=== PATIENT | female | born 1985 | race Caucasian/White ===

== ENCOUNTER 2019-02-02 13:09 | Day surgery (SDC) | payer BC ==
[2019-02-02] MEDS ORDERED: Sodium Chloride 0.9% 1,000 ML IV ONE ×2 (14:12→17:45)
[2019-02-02] MEDS ORDERED: Sodium Chloride 0.9% 10 ML Syringe FLUSH PRN (14:12)
[2019-02-02] MEDS ORDERED: Acetaminophen 325 MG/10.15 ML ML PO ONE (14:27)
[2019-02-02] MEDS ORDERED: Ondansetron 4 MG/2 ML SDV IVPUSH ONE (14:28)
[2019-02-02] MEDS ORDERED: Acetaminophen 325 MG Tab PO ONE (14:41)
[2019-02-02] MEDS ORDERED: Acetaminophen/HYDROcodone 325-5 MG Tab PO ONE (17:21)
[2019-02-02] MEDS ORDERED: HYDROmorphone 0.5 MG/0.5 ML Syringe IVPUSH ONE (18:55)
--- NOTE | 2019-02-02 19:20 | PCM.HP ---
H&P History of Present Illness - General Date of Service: 02/02/19 Admit Problem/Dx: hemoperitoneum Source of Information: Patient History Limitations: Reports: No Limitations - History of Present Illness Initial Comments - Free Text/Narative: 33 year old at 6w5 days by her report of ultrasound on in Dr. Navas's office. Those reports are not available for review but she describes having an ultrasound showing normal IUP and nothing abnormal in the adnexa. was conceived via clomid. No history of pelvic inflammatory disease. She had pain this morning that brought her to her knees and cramping with some spotting so presented to the emergency department. ON exam she had RUQ pain and was set to be discharged but insisted on an ultrasound which demonstrated hemoperitoneum with blood to the level of the diaphragm. Difficult to see source of bleeding on ultrasound per the tech but does appear to be active bleeding on the right on cine loop. Viable IUP FHT 144. Onset of Symptoms: Reports: Gradual Symptom Onset Date: 01/31/19 Lower Abdominal Pain Score (Numeric/FACES): 6 - Related Data Allergies/Adverse Reactions: Allergies Allergy/AdvReac Type Severity Reaction Status Date / Time No Known Allergies Allergy Verified 02/02/19 13:28 Home Medications: Home Meds Vit Calc,Iron,Folic [ Vitamins] 1 tab PO DAILY 08/14/16 [ History] Folic Acid 1 mg PO DAILY 02/02/19 [History] Progesterone,Micronized [Progesterone] 100 mg PO DAILY 02/02/19 [History] Past Medical History HEENT History: Reports: Impaired Vision Other HEENT History: Pt wears contacts Gastrointestinal History: Reports: GERD Genitourinary History: Reports: None TRANSPORTATION ESCORT History: Reports: Musculoskeletal History: Reports: None Oncologic (Cancer) History: Reports: None - Past Surgical History Female Surgical History: Reports: Other (See Below) Musculoskeletal Surgical History: Reports: Other (See Below) Social & Family History - Tobacco Use Smoking Status *Q: Never Smoker - Caffeine Use Caffeine Use: Reports: None - Recreational Drug Use Recreational Drug Use: No H&P Review of Systems - Review of Systems: Review Of Systems: See Below General: Reports: No Symptoms HEENT: Reports: No Symptoms Pulmonary: Reports: No Symptoms Cardiovascular: Reports: No Symptoms Gastrointestinal: Reports: No Symptoms Genitourinary: Reports: No Symptoms Musculoskeletal: Reports: No Symptoms Skin: Reports: No Symptoms Psychiatric: Reports: No Symptoms Neurological: Reports: No Symptoms Hematologic/Lymphatic: Reports: No Symptoms Immunologic: Reports: No Symptoms Exam - Exam Exam: See Below - Vital Signs Vital Signs: Last Vital Signs Temp 36.4 C 02/02/19 16:28 Pulse 98 02/02/19 13:28 Resp 18 02/02/19 16:28 BP 105/63 02/02/19 16:28 Pulse Ox 100 02/02/19 16:28 Orthostatic Blood Pressure [ 110/69 Supine] Orthostatic Blood Pressure [ 91/63 Standing] Orthostatic Blood Pressure [ 108/75 Sitting] Weight: 66.224 kg - Exam General: Alert, Oriented, 4 HEENT: PERRLA, Hearing Intact, Mucosa Moist & [place], Nares Patent, Normal Nasal Septum, Posterior Pharynx Clear, Conjunctiva Clear, EOMI, EACs Clear, TMs Clear Neck: Supple, Trachea Midline, 2 Lungs: Clear to Auscultation, Normal Respiratory Effort Cardiovascular: Regular Rate, Regular Rhythm GI/Abdominal Exam: Normal Bowel Sounds, Soft, Non-Tender, No Organomegaly, No Distention, No Abnormal Bruit, No Mass, Guarding (Female) Exam: Other (tender) Rectal (Female) Exam: Normal Exam, Normal Rectal Tone Back Exam: Normal Inspection, Full Range of Motion, NT Extremities: Normal Inspection, Normal Range of Motion, Non-Tender, No Pedal Edema, Normal Capillary Refill Skin: Warm, Dry, Intact Neurological: Cranial Nerves Intact, Reflexes Equal Bilateral Neuro Extensive - Mental Status: Alert, Oriented x3, Normal Mood/Affect, Normal Cognition Neuro Extensive - Motor, Sensory, Reflexes: CN II-XII Intact, Normal Gait, Normal Reflexes Psychiatric: Alert, Normal Affect, Normal Mood - Patient Data Lab Results Last 24 hrs: Laboratory Results - last 24 hr 02/02/19 02/02/19 02/02/19 Range/Units 14:30 14:30 14:30 WBC 11.71 H (3.98-10.04) K/mm3 RBC 3.65 L (3.98-5.22) M/mm3 Hgb 11.0 L (11.2-15.7) gm/L Hct 32.0 L (34.1-44.9) % MCV 87.7 D (79.4-94.8) fl MCH 30.1 (25.6-32.2) pg MCHC 34.4 (32.2-35.5) g/dl RDW Std Deviation 37.5 (36.4-46.3) fL Plt Count 308 D (182-369) K/mm3 MPV 10.2 (9.4-12.3) fl Neut % (Auto) 83.7 H (34.0-71.1) % Lymph % (Auto) 9.0 L (19.3-51.7) % [place] % (Auto) 6.9 (4.7-12.5) % Eos % (Auto) 0.1 L (0.7-5.8) Baso % (Auto) 0.1 (0.1-1.2) % Neut # (Auto) 9.81 H (1.56-6.13) K/mm3 Lymph # (Auto) 1.05 L (1.18-3.74) K/mm3 [place] # (Auto) 0.81 H (0.24-0.36) K/mm3 Eos # (Auto) 0.01 L (0.04-0.36) K/mm3 Baso # (Auto) 0.01 (0.01-0.08) K/mm3 Manual Slide Review Abnormal smear PT (9.5-12.1) SECONDS INR APTT (24-31) SECONDS Sodium 136 (136-145) mEq/L Potassium 3.8 (3.5-5.1) mEq/L Chloride 101 (98-107) mEq/L Carbon Dioxide 23 (21-32) mEq/L Anion Gap 15.8 H (5-15) BUN 11 (7-18) mg/dL Creatinine 0.7 (0.55-1.02) mg/dL Est Cr Clr Drug Dosing 103.82 mL/min Estimated GFR (MDRD) > 60 (>60) mL/min BUN/Creatinine Ratio 15.7 (14-18) Glucose 120 H (74-106) mg/dL Calcium 9.0 (8.5-10.1) mg/dL Total Bilirubin 0.7 (0.2-1.0) mg/dL AST 13 L (15-37) U/L ALT 15 (14-59) U/L Alkaline Phosphatase 48 (46-116) U/L Total Protein 7.3 (6.4-8.2) g/dl Albumin 3.5 (3.4-5.0) g/dl Globulin 3.8 gm/dL Albumin/Globulin Ratio 0.9 L (1-2) Lipase 87 (73-393) U/L HCG, Quant 31549.0 mIU/mL Urine Color (Yellow) Urine Appearance (Clear) Urine pH (5.0-8.0) Ur Specific [place] (1.005-1.030) Urine Protein (Negative) Urine Glucose (UA) (Negative) Urine Ketones (Negative) Urine Occult Blood (Negative) Urine Nitrite (Negative) Urine Bilirubin (Negative) Urine Urobilinogen (0.2-1.0) Ur Leukocyte Esterase (Negative) Urine RBC (0-5) /hpf Urine WBC (0-5) /hpf Ur Squamous Epith Cells (0-5) /hpf Urine Bacteria (FEW) /hpf Urine Mucus (FEW) /hpf Blood Type Gel Antibody Screen Rhogam Indicated 02/02/19 02/02/19 02/02/19 Range/Units 14:30 14:30 17:30 WBC (3.98-10.04) K/mm3 RBC (3.98-5.22) M/mm3 Hgb (11.2-15.7) gm/L Hct (34.1-44.9) % MCV (79.4-94.8) fl MCH (25.6-32.2) pg MCHC (32.2-35.5) g/dl RDW Std Deviation (36.4-46.3) fL Plt Count (182-369) K/mm3 MPV (9.4-12.3) fl Neut % (Auto) (34.0-71.1) % Lymph % (Auto) (19.3-51.7) % [place] % (Auto) (4.7-12.5) % Eos % (Auto) (0.7-5.8) Baso % (Auto) (0.1-1.2) % Neut # (Auto) (1.56-6.13) K/mm3 Lymph # (Auto) (1.18-3.74) K/mm3 [place] # (Auto) (0.24-0.36) K/mm3 Eos # (Auto) (0.04-0.36) K/mm3 Baso # (Auto) (0.01-0.08) K/mm3 Manual Slide Review PT 9.8 (9.5-12.1) SECONDS INR < 0.93 APTT 25 (24-31) SECONDS Sodium (136-145) mEq/L Potassium (3.5-5.1) mEq/L Chloride (98-107) mEq/L Carbon Dioxide (21-32) mEq/L Anion Gap (5-15) BUN (7-18) mg/dL Creatinine (0.55-1.02) mg/dL Est Cr Clr Drug Dosing mL/min Estimated GFR (MDRD) (>60) mL/min BUN/Creatinine Ratio (14-18) Glucose (74-106) mg/dL Calcium (8.5-10.1) mg/dL Total Bilirubin (0.2-1.0) mg/dL AST (15-37) U/L ALT (14-59) U/L Alkaline Phosphatase (46-116) U/L Total Protein (6.4-8.2) g/dl Albumin (3.4-5.0) g/dl Globulin gm/dL Albumin/Globulin Ratio (1-2) Lipase (73-393) U/L HCG, Quant mIU/mL Urine Color Yellow (Yellow) Urine Appearance Clear (Clear) Urine pH 5.5 (5.0-8.0) Ur Specific [place] > or = 1.030 (1.005-1.030) Urine Protein Trace H (Negative) Urine Glucose (UA) Negative (Negative) Urine Ketones Trace H (Negative) Urine Occult Blood Trace-lysed H (Negative) Urine Nitrite Negative (Negative) Urine Bilirubin Negative (Negative) Urine Urobilinogen 0.2 (0.2-1.0) Ur Leukocyte Esterase Negative (Negative) Urine RBC 0-5 (0-5) /hpf Urine WBC 0-5 (0-5) /hpf Ur Squamous Epith Cells 5-10 H (0-5) /hpf Urine Bacteria Few (FEW) /hpf Urine Mucus Moderate H (FEW) /hpf Blood Type O NEGATIVE Gel Antibody Screen Positive Rhogam Indicated Yes Result Diagrams: 02/02/19 14:30 02/02/19 14:30 Problem List Initiated/Reviewed/Updated: Yes Orders Last 24hrs: Active Orders 24 hr Category Date Time Status Orthostatic Vital Signs [RC] ASDIRECTED Care 02/02/19 14:12 Active Pelvic Exam, Set Up [RC] ASDIRECTED Care 02/02/19 17:09 Active Peripheral IV Care [RC] . DIRECTED Care 02/02/19 14:12 Active OB Transvaginal [US] Stat Exams 02/02/19 17:21 Taken ANTIBODY IDENTIFICATION [BBK] Stat Lab 02/02/19 14:30 Results RH IMMUNE GLOBULIN [BBK] Stat Lab 02/02/19 14:30 Results RHOGAM, [RHIG WORKUP, ] [BBK] Stat Lab 02/02/19 14:30 Results Sodium Chloride 0.9% [Saline Flush] Med 02/02/19 14:12 Active 10 ml FLUSH ASDIRECTED PRN Peripheral IV Insertion Adult [OM.PC] Routine Oth 02/02/19 14:12 Ordered Medication Orders Sodium Chloride (Saline Flush) 10 ml FLUSH ASDIRECTED PRN PRN Reason: Keep Vein Open Last Admin: 02/02/19 14:32 Dose: 10 ml Assessment/Plan Comment:: 33 year old female with hemoperitoneum. Differential diagnosis includes ruptured ectopic (heterotopic), ruptured ovarian cyst. Patient with orthostatic hypotension and active bleeding. OR team has been called. Proceed with laparoscopic evacuation of hemoperitoneum and possible salpingectomy vs ovarian cystectomy vs other indicated procedures. Possible laparotomy.
[2019-02-02] MEDS ORDERED: Lactated Ringers 1,000 ML ONE (19:29)
--- NOTE | 2019-02-02 19:31 | PCM.PREANE ---
Preanesthetic Assessment - Procedure Proposed Procedure: diagnostic laparoscopy evacuation of hemoparitoneum - Anesthesia/Transfusion/Family Hx Anesthesia History: Prior Anesthesia Without Reaction Family History of Anesthesia Reaction: No Transfusion History: No Prior Transfusion(s) - Review of Systems General: No Symptoms Pulmonary: No Symptoms Cardiovascular: No Symptoms Gastrointestinal: Abdominal Pain (started monday am), Vomiting (this am) Neurological: No Symptoms - Physical Assessment NPO Status Date: 02/02/19 NPO Status Time: 11:00 (noodles ) O2 Sat by Pulse Oximetry: 100 Respiratory Rate: 18 Temperature: 97.5 F Vital Signs: Last Vital Signs Temp 97.5 F 02/02/19 16:28 Pulse 98 02/02/19 13:28 Resp 18 02/02/19 16:28 BP 105/63 02/02/19 16:28 Pulse Ox 100 02/02/19 16:28 Orthostatic Blood Pressure [ 110/69 Supine] Orthostatic Blood Pressure [ 91/63 Standing] Orthostatic Blood Pressure [ 108/75 Sitting] Height: 5 ft 5 in Weight: 66.224 kg ASA Class: 1E Mental Status: Alert & Oriented x3 Airway Class: Mallampati = 1 Dentition: Reports: Normal Dentition Thyro-Mental Finger Breadths: 3 Mouth Opening Finger Breadths: 3 ROM/Head Extension: Full Lungs: Clear to Auscultation, Normal Respiratory Effort Cardiovascular: Regular Rate, Regular Rhythm - Lab Values: Laboratory Last Values WBC 11.71 K/mm3 (3.98-10.04) H 02/02/19 14:30 RBC 3.65 M/mm3 (3.98-5.22) L 02/02/19 14:30 Hgb 11.0 gm/L (11.2-15.7) L 02/02/19 14:30 Hct 32.0 % (34.1-44.9) L 02/02/19 14:30 MCV 87.7 fl (79.4-94.8) D 02/02/19 14:30 MCH 30.1 pg (25.6-32.2) 02/02/19 14:30 MCHC 34.4 g/dl (32.2-35.5) 02/02/19 14:30 RDW Std Deviation 37.5 fL (36.4-46.3) 02/02/19 14:30 Plt Count 308 K/mm3 (182-369) D 02/02/19 14:30 MPV 10.2 fl (9.4-12.3) 02/02/19 14:30 Neut % (Auto) 83.7 % (34.0-71.1) H 02/02/19 14:30 Lymph % (Auto) 9.0 % (19.3-51.7) L 02/02/19 14:30 [place] % (Auto) 6.9 % (4.7-12.5) 02/02/19 14:30 Eos % (Auto) 0.1 (0.7-5.8) L 02/02/19 14:30 Baso % (Auto) 0.1 % (0.1-1.2) 02/02/19 14:30 Neut # (Auto) 9.81 K/mm3 (1.56-6.13) H 02/02/19 14:30 Lymph # (Auto) 1.05 K/mm3 (1.18-3.74) L 02/02/19 14:30 [place] # (Auto) 0.81 K/mm3 (0.24-0.36) H 02/02/19 14:30 Eos # (Auto) 0.01 K/mm3 (0.04-0.36) L 02/02/19 14:30 Baso # (Auto) 0.01 K/mm3 (0.01-0.08) 02/02/19 14:30 Manual Slide Review Abnormal smear 02/02/19 14:30 PT 9.8 SECONDS (9.5-12.1) 02/02/19 14:30 INR < 0.93 02/02/19 14:30 APTT 25 SECONDS (24-31) 02/02/19 14:30 Sodium 136 mEq/L (136-145) 02/02/19 14:30 Potassium 3.8 mEq/L (3.5-5.1) 02/02/19 14:30 Chloride 101 mEq/L (98-107) 02/02/19 14:30 Carbon Dioxide 23 mEq/L (21-32) 02/02/19 14:30 Anion Gap 15.8 (5-15) H 02/02/19 14:30 BUN 11 mg/dL (7-18) 02/02/19 14:30 Creatinine 0.7 mg/dL (0.55-1.02) 02/02/19 14:30 Est Cr Clr Drug Dosing 103.82 mL/min 02/02/19 14:30 Estimated GFR (MDRD) > 60 mL/min (>60) 02/02/19 14:30 BUN/Creatinine Ratio 15.7 (14-18) 02/02/19 14:30 Glucose 120 mg/dL (74-106) H 02/02/19 14:30 Calcium 9.0 mg/dL (8.5-10.1) 02/02/19 14:30 Total Bilirubin 0.7 mg/dL (0.2-1.0) 02/02/19 14:30 AST 13 U/L (15-37) L 02/02/19 14:30 ALT 15 U/L (14-59) 02/02/19 14:30 Alkaline Phosphatase 48 U/L (46-116) 02/02/19 14:30 Total Protein 7.3 g/dl (6.4-8.2) 02/02/19 14:30 Albumin 3.5 g/dl (3.4-5.0) 02/02/19 14:30 Globulin 3.8 gm/dL 02/02/19 14:30 Albumin/Globulin Ratio 0.9 (1-2) L 02/02/19 14:30 Lipase 87 U/L (73-393) 02/02/19 14:30 HCG, Quant 25562.0 mIU/mL 02/02/19 14:30 Urine Color Yellow (Yellow) 02/02/19 17:30 Urine Appearance Clear (Clear) 02/02/19 17:30 Urine pH 5.5 (5.0-8.0) 02/02/19 17:30 Ur Specific [place] > or = 1.030 (1.005-1.030) 02/02/19 17:30 Urine Protein Trace (Negative) H 02/02/19 17:30 Urine Glucose (UA) Negative (Negative) 02/02/19 17:30 Urine Ketones Trace (Negative) H 02/02/19 17:30 Urine Occult Blood Trace-lysed (Negative) H 02/02/19 17:30 Urine Nitrite Negative (Negative) 02/02/19 17:30 Urine Bilirubin Negative (Negative) 02/02/19 17:30 Urine Urobilinogen 0.2 (0.2-1.0) 02/02/19 17:30 Ur Leukocyte Esterase Negative (Negative) 02/02/19 17:30 Urine RBC 0-5 /hpf (0-5) 02/02/19 17:30 Urine WBC 0-5 /hpf (0-5) 02/02/19 17:30 Ur Squamous Epith Cells 5-10 /hpf (0-5) H 02/02/19 17:30 Urine Bacteria Few /hpf (FEW) 02/02/19 17:30 Urine Mucus Moderate /hpf (FEW) H 02/02/19 17:30 Blood Type O NEGATIVE 02/02/19 14:30 Gel Antibody Screen Positive 02/02/19 14:30 Rhogam Indicated Yes 02/02/19 14:30 - Allergies Allergies/Adverse Reactions: Allergies Allergy/AdvReac Type Severity Reaction Status Date / Time No Known Allergies Allergy Verified 02/02/19 13:28 - Acknowledgements Anesthesia Type Planned: General Anesthesia Pt an Appropriate Candidate for the Planned Anesthesia: Yes Alternatives and Risks of Anesthesia Discussed w Pt/Guardian: Yes Pt/Guardian Understands and Agrees with Anesthesia Plan: Yes PreAnesthesia Questionnaire HEENT History: Reports: Impaired Vision Other HEENT History: Pt wears contacts Cardiovascular History: Reports: None Respiratory History: Reports: None Gastrointestinal History: Reports: GERD (with preg) Genitourinary History: Reports: None INFORMATION SYSTEMS PROFESSOR History: Reports: : 3 (misscarried in october ) Para: 1 (6 weeks now) Musculoskeletal History: Reports: None Oncologic (Cancer) History: Reports: None - Past Surgical History Female Surgical History: Reports: Other (See Below) (labia surgery) Musculoskeletal Surgical History: Reports: Other (See Below) (knee) - SUBSTANCE USE Smoking Status *Q: Never Smoker Tobacco Use Within Last Twelve Months: No Second Hand Smoke Exposure: No Days Per Week of Alcohol Use: 0 (rare) Recreational Drug Use History: No - HOME MEDS Home Medications: Home Meds Vit Calc,Iron,Folic [ Vitamins] 1 tab PO DAILY 08/14/16 [ History] Folic Acid 1 mg PO DAILY 02/02/19 [History] Progesterone,Micronized [Progesterone] 100 mg PO DAILY 02/02/19 [History] - CURRENT (IN HOUSE) MEDS Current Meds: Current Medications Sodium Chloride (Saline Flush) 10 ml FLUSH ASDIRECTED PRN PRN Reason: Keep Vein Open Last Admin: 02/02/19 14:32 Dose: 10 ml Discontinued Medications Acetaminophen (Tylenol) 950 mg PO ONETIME ONE Stop: 02/02/19 14:28 Last Admin: 02/02/19 15:03 Dose: Not Given Acetaminophen (Tylenol) 975 mg PO NOW ONE Stop: 02/02/19 14:42 Last Admin: 02/02/19 15:01 Dose: 975 mg Hydrocodone Bitart/Acetaminophen ([place] 325-5 Mg) 1 tab PO ONETIME ONE Stop: 02/02/19 17:22 Last Admin: 02/02/19 18:48 Dose: Not Given Hydromorphone HCl (Dilaudid) 0.5 mg IVPUSH ONETIME ONE Stop: 02/02/19 18:56 Sodium Chloride (Normal Saline) 1,000 mls @ 999 mls/hr IV ONETIME ONE Stop: 02/02/19 15:12 Last Admin: 02/02/19 14:30 Dose: 999 mls/hr Sodium Chloride (Normal Saline) 1,000 mls @ 999 mls/hr IV ONETIME ONE Stop: 02/02/19 18:45 Last Admin: 02/02/19 18:36 Dose: 999 mls/hr Ondansetron HCl (Zofran) 4 mg IVPUSH ONETIME ONE Stop: 02/02/19 14:29 Last Admin: 02/02/19 15:03 Dose: 4 mg
[2019-02-02] MEDS ORDERED: Lactated Ringers 1,000 ML IV ONE (19:34)
[2019-02-02] MEDS ORDERED: Midazolam 1 MG/ML 2 ML SDV ONE (19:35)
[2019-02-02] MEDS ORDERED: Rocuronium 50 MG/5 ML Vial ONE (19:35)
[2019-02-02] MEDS ORDERED: Ondansetron 4 MG/2 ML SDV ONE (19:35)
[2019-02-02] MEDS ORDERED: fentaNYL 250 MCG/5 ML SDV ONE (19:35)
[2019-02-02] MEDS ORDERED: Propofol 200 MG/20 ML SDV ONE (19:35)
[2019-02-02] MEDS ORDERED: Lidocaine 1% 4 ML ONE (19:35)
[2019-02-02] MEDS ORDERED: Dexamethasone 4 MG/ML 5 ML MDV ONE (19:39)
[2019-02-02] MEDS ORDERED: Bupivacaine 0.5% 30 ML SDV ONE (19:39)
[2019-02-02] MEDS ORDERED: ceFAZolin 1 GM Vial ONE (19:54)
[2019-02-02] MEDS ORDERED: ePHEDrine/Normal Saline 25 MG/5 ML Syringe ONE (20:04)
[2019-02-02] MEDS ORDERED: Ondansetron 4 MG/2 ML SDV IVPUSH PRN (20:08)
[2019-02-02] MEDS ORDERED: HYDROmorphone 0.5 MG/0.5 ML Syringe IVPUSH PRN (20:08)
[2019-02-02] MEDS ORDERED: fentaNYL 100 MCG/2 ML SDV IVPUSH PRN (20:08)
[2019-02-02] MEDS ORDERED: Neostigmine Methylsulfate 1 MG/ML 5 ML Syringe ONE (20:33)
--- NOTE | 2019-02-02 21:03 | PCM.POSTAN ---
POST ANESTHESIA ASSESSMENT - MENTAL STATUS Mental Status: Alert, Oriented - VITAL SIGNS Pulse Rate: 90 SaO2: 98 Resp Rate: 17 Blood Pressure: 105/61 Temperature: 98.7 F - RESPIRATORY Respiratory Status: Respiratory Rate WNL, Airway Patent, O2 Saturation Stable - CARDIOVASCULAR CV Status: Pulse Rate WNL, Blood Pressure Stable - GASTROINTESTINAL GI Status: No Symptoms - PAIN Pain Score: 3 - POST OP HYDRATION Hydration Status: Adequate & Stable
--- NOTE | 2019-02-02 21:28 | PCM.OPNOTE ---
- General Post-Op/Procedure Note Date of Surgery/Procedure: 02/02/19 Operative Procedure(s): diagnostic laparoscopy with right salpingectomy Findings: right dilated blood filled fallopian tube, blood in abdomen Pre Op Diagnosis: hemoperitoneum Post-Op Diagnosis: Same Primary Surgeon: Aurora Jason Fluid Replacement, Intraop: 900 Output, Urine Amount: 175 EBL in mLs: 5 Complications: None Condition: Good Free Text/Narrative:: Intake & Output 02/02/19 02/02/19 02/02/19 06:59 14:59 22:59 Intake Total 2 Balance 2 Patient taken to the operating room. Prepped and draped in normal sterile fashion (vaginal prep not preformed). Attention was re-directed to the abdomen and a 5 mm skin incision was made in the patient's umbilical fold. A blunt tipped trocar was advanced under direct visualization using the laparoscope. The abdomen was insufflated and no evidence of injury upon entry was noted. General survey of the abdomen reveal normal uterus and ovaries. A 5 mm incision was then made on each the left and lower on the left side and a blunt tipped trocar was advanced under direct visualization. Suction box sealing machine operator used to evacuate clot from the abdomen. Abdomen inspected. Right fallopian tubed dilated and blood coming from midportion. Ligasure used to ligate and cut along mesosalpinx and remove fallopian tube. 11 mm trocar used to replace lower of the 5 mm trocars. Endocatch bag inserted, tube placed in bag and removed. Abdomen inspected. Area of fallopian tube dissection inspected and hemostatic. 11 mm trocar removed. Fascia closed with 0 vicryl on ur6 under direct visualization. Pneumoperitoneum taken down. 5 mm trocars removed under direct visualization. Skin closed with 4-0 vicryl. Patient awakened and taken to PACU in good condition. Ultrasound ordered for after PACU.
--- NOTE | 2019-02-02 21:28 | PCM48HPAN ---
Post Anesthesia Note - EVALUATION WITHIN 48HRS OF ANESTHETIC Vital Signs in Normal Range: Yes Patient Participated in Evaluation: Yes Respiratory Function Stable: Yes Airway Patent: Yes Cardiovascular Function Stable: Yes Hydration Status Stable: Yes Pain Control Satisfactory: Yes Nausea and Vomiting Control Satisfactory: Yes Mental Status Recovered: Yes (rests/ will go to floor soon) Pulse Rate: 90 Resp Rate: 14 Temperature: 98.7 F Blood Pressure: 105/61
[2019-02-02] MEDS ORDERED: Lactated Ringers 1,000 ML IV SCH (21:30)
--- NOTE | 2019-02-02 22:06 | EDM.PDOC ---
ED HPI GENERAL MEDICAL PROBLEM - General Chief Complaint: EARLY INTERVENTION SPECIALIST Problem Stated Complaint: 6 WKS PG - CRAMPING AND BLEEDING Time Seen by Provider: 02/02/19 14:00 Source of Information: Reports: Patient, Old Records History Limitations: Reports: No Limitations - History of Present Illness INITIAL COMMENTS - FREE TEXT/NARRATIVE: 33-year-old female presents for evaluation and treatment of cramping and bleeding. Patient reports she is approximately 6 weeks . She is a . She reports that she miscarried in October which was approximally 5 weeks along. Her EARLY INTERVENTION SPECIALIST is Dr. Navas. She has had 2 ultrasounds for this thus far. Last ultrasound was done on . Review of records, from [facility], show that she has an intrauterine . She states that a heart rate was seen. Patient reports that she developed some mild cramping on which prompted her visit to Dr. Navas. She states on Monday she had some mild cramping. She reports today she has had abdominal pain in the pelvis that is worse with movement. She is also complaining of some pain to her upper abdomen that radiates between her shoulder blades. She states that one hour prior to removal she noticed some vaginal bleeding on the toilet tissue. She has a pad on at this time but has not had bleeding soak through a pad. She states that she has not appreciated any clots of blood. She states that she has been nauseous and has not vomited this morning. She reports that she did have a syncopal episode this morning, she felt hot and cold. She did not have anything to eat. She states that she did not have any major trauma with the syncopal episode. She has been taking Tylenol for the pain and last dose was around 5 AM. She also tried some MiraLAX. review of the patient's records show that she is blood type O negative. Onset: Gradual Onset Date: 01/31/19 Lower Abdominal Pain Score (Numeric/FACES): 6 - Related Data Allergies Allergy/AdvReac Type Severity Reaction Status Date / Time No Known Allergies Allergy Verified 02/02/19 13:28 Home Meds: Home Meds Vit Calc,Iron,Folic [ Vitamins] 1 tab PO DAILY 08/14/16 [ History] Folic Acid 1 mg PO DAILY 02/02/19 [History] Progesterone,Micronized [Progesterone] 100 mg PO DAILY 02/02/19 [History] Past Medical History HEENT History: Reports: Impaired Vision Other HEENT History: Pt wears contacts Cardiovascular History: Reports: None Respiratory History: Reports: None Gastrointestinal History: Reports: GERD (with preg) Genitourinary History: Reports: None EARLY INTERVENTION SPECIALIST History: Reports: Musculoskeletal History: Reports: None Oncologic (Cancer) History: Reports: None - Past Surgical History Female Surgical History: Reports: Other (See Below) (labia surgery) Musculoskeletal Surgical History: Reports: Other (See Below) (knee) Social & Family History - Tobacco Use Smoking Status *Q: Never Smoker Second Hand Smoke Exposure: No - Caffeine Use Caffeine Use: Reports: None - Alcohol Use Days Per Week of Alcohol Use: 0 (rare) - Recreational Drug Use Recreational Drug Use: No ED ROS GENERAL - Review of Systems Review Of Systems: See Below GI/Abdominal: Reports: Abdominal Pain, Nausea. Denies: Vomiting : Reports: No Symptoms, Other (reports vaginal bleeding) Musculoskeletal: Reports: Back Pain Neurological: Reports: Syncope ED EXAM - Physical Exam Exam: See Below Exam Limited By: No Limitations General Appearance: Alert, WD/WN, Mild Distress Throat/Mouth: Normal Inspection, Normal Voice, No Airway Compromise Respiratory/Chest: No Respiratory Distress, Lungs Clear, Normal Breath Sounds Cardiovascular: Normal Peripheral Pulses, Regular Rate, Rhythm, No Murmur GI/Abdominal Exam: Normal Bowel Sounds, Soft, Tender (Generalized throughout her abdomen, positive Montgomery sign.) (Female) Exam: Normal Speculum Exam. No: Products of Conception, Tissue Present in Cervix/Vagina, Vaginal Bleeding (Very small amount of brown blood in the vagina with normal vaginal discharge. Cervix is closed.) Neurological: Alert, Oriented, Normal Cognition Psychiatric: Normal Affect, Normal Mood Skin Exam: Warm, Dry Course - Vital Signs Last Recorded V/S: Last Vital Signs Temp 98.1 F 02/02/19 21:50 Pulse 90 02/02/19 21:28 Resp 20 02/02/19 21:50 BP 104/62 02/02/19 21:50 Pulse Ox 98 02/02/19 21:50 Orthostatic Blood Pressure [ 110/69 Supine] Orthostatic Blood Pressure [ 91/63 Standing] Orthostatic Blood Pressure [ 108/75 Sitting] - Orders/Labs/Meds Orders: Active Orders 24 hr Category Date Time Status Communication Order [RC] ROUTINE Care 02/02/19 20:08 Active Cooling Warming Measures [RC] ASDIRECTED Care 02/02/19 20:08 Active Oxygen Therapy [RC] ASDIRECTED Care 02/02/19 20:08 Active Vital Signs [RC] PER UNIT ROUTINE Care 02/02/19 22:14 Active Vital Signs [RC] Q15M Care 02/02/19 20:08 Active Regular Diet [DIET] Diet 02/02/19 Dinner Active OB Transvaginal [US] Routine Exams 02/02/19 22:14 Ordered OB Transvaginal [US] Routine Exams 02/02/19 22:15 Ordered OB Transvaginal [US] Routine Exams 02/02/19 22:16 Ordered OB Transvaginal [US] Stat Exams 02/02/19 17:21 Taken ANTIBODY IDENTIFICATION [BBK] Stat Lab 02/02/19 14:30 Results CBC WITH AUTO DIFF [HEME] AM Lab 02/03/19 05:11 Ordered RH IMMUNE GLOBULIN [BBK] Stat Lab 02/02/19 14:30 Results RHOGAM, [RHIG WORKUP, ] [BBK] Stat Lab 02/02/19 14:30 Results Acetaminophen [Tylenol] Med 02/02/19 22:14 Active 650 mg PO Q4H PRN Acetaminophen/oxyCODONE [Percocet 325-5 MG] Med 02/02/19 22:14 Active 2 tab PO Q4H PRN Resuscitation Status Routine Resus Stat 02/02/19 22:05 Ordered Medication Orders Acetaminophen (Tylenol) 650 mg PO Q4H PRN PRN Reason: Pain (mild 1-3) Oxycodone/Acetaminophen (Percocet 325-5 Mg) 2 tab PO Q4H PRN PRN Reason: Pain (moderate 4-6) Labs: Laboratory Tests 02/02/19 02/02/19 02/02/19 Range/Units 14:30 14:30 14:30 WBC 11.71 H (3.98-10.04) K/mm3 RBC 3.65 L (3.98-5.22) M/mm3 Hgb 11.0 L (11.2-15.7) gm/L Hct 32.0 L (34.1-44.9) % MCV 87.7 D (79.4-94.8) fl MCH 30.1 (25.6-32.2) pg MCHC 34.4 (32.2-35.5) g/dl RDW Std Deviation 37.5 (36.4-46.3) fL Plt Count 308 D (182-369) K/mm3 MPV 10.2 (9.4-12.3) fl Neut % (Auto) 83.7 H (34.0-71.1) % Lymph % (Auto) 9.0 L (19.3-51.7) % [place] % (Auto) 6.9 (4.7-12.5) % Eos % (Auto) 0.1 L (0.7-5.8) Baso % (Auto) 0.1 (0.1-1.2) % Neut # (Auto) 9.81 H (1.56-6.13) K/mm3 Lymph # (Auto) 1.05 L (1.18-3.74) K/mm3 [place] # (Auto) 0.81 H (0.24-0.36) K/mm3 Eos # (Auto) 0.01 L (0.04-0.36) K/mm3 Baso # (Auto) 0.01 (0.01-0.08) K/mm3 Manual Slide Review Abnormal smear PT (9.5-12.1) SECONDS INR APTT (24-31) SECONDS Sodium 136 (136-145) mEq/L Potassium 3.8 (3.5-5.1) mEq/L Chloride 101 (98-107) mEq/L Carbon Dioxide 23 (21-32) mEq/L Anion Gap 15.8 H (5-15) BUN 11 (7-18) mg/dL Creatinine 0.7 (0.55-1.02) mg/dL Est Cr Clr Drug Dosing 103.82 mL/min Estimated GFR (MDRD) > 60 (>60) mL/min BUN/Creatinine Ratio 15.7 (14-18) Glucose 120 H (74-106) mg/dL Calcium 9.0 (8.5-10.1) mg/dL Total Bilirubin 0.7 (0.2-1.0) mg/dL AST 13 L (15-37) U/L ALT 15 (14-59) U/L Alkaline Phosphatase 48 (46-116) U/L Total Protein 7.3 (6.4-8.2) g/dl Albumin 3.5 (3.4-5.0) g/dl Globulin 3.8 gm/dL Albumin/Globulin Ratio 0.9 L (1-2) Lipase 87 (73-393) U/L HCG, Quant 30874.0 mIU/mL Urine Color (Yellow) Urine Appearance (Clear) Urine pH (5.0-8.0) Ur Specific [place] (1.005-1.030) Urine Protein (Negative) Urine Glucose (UA) (Negative) Urine Ketones (Negative) Urine Occult Blood (Negative) Urine Nitrite (Negative) Urine Bilirubin (Negative) Urine Urobilinogen (0.2-1.0) Ur Leukocyte Esterase (Negative) Urine RBC (0-5) /hpf Urine WBC (0-5) /hpf Ur Squamous Epith Cells (0-5) /hpf Urine Bacteria (FEW) /hpf Urine Mucus (FEW) /hpf Blood Type Gel Antibody Screen Rhogam Indicated 02/02/19 02/02/19 02/02/19 Range/Units 14:30 14:30 17:30 WBC (3.98-10.04) K/mm3 RBC (3.98-5.22) M/mm3 Hgb (11.2-15.7) gm/L Hct (34.1-44.9) % MCV (79.4-94.8) fl MCH (25.6-32.2) pg MCHC (32.2-35.5) g/dl RDW Std Deviation (36.4-46.3) fL Plt Count (182-369) K/mm3 MPV (9.4-12.3) fl Neut % (Auto) (34.0-71.1) % Lymph % (Auto) (19.3-51.7) % [place] % (Auto) (4.7-12.5) % Eos % (Auto) (0.7-5.8) Baso % (Auto) (0.1-1.2) % Neut # (Auto) (1.56-6.13) K/mm3 Lymph # (Auto) (1.18-3.74) K/mm3 [place] # (Auto) (0.24-0.36) K/mm3 Eos # (Auto) (0.04-0.36) K/mm3 Baso # (Auto) (0.01-0.08) K/mm3 Manual Slide Review PT 9.8 (9.5-12.1) SECONDS INR < 0.93 APTT 25 (24-31) SECONDS Sodium (136-145) mEq/L Potassium (3.5-5.1) mEq/L Chloride (98-107) mEq/L Carbon Dioxide (21-32) mEq/L Anion Gap (5-15) BUN (7-18) mg/dL Creatinine (0.55-1.02) mg/dL Est Cr Clr Drug Dosing mL/min Estimated GFR (MDRD) (>60) mL/min BUN/Creatinine Ratio (14-18) Glucose (74-106) mg/dL Calcium (8.5-10.1) mg/dL Total Bilirubin (0.2-1.0) mg/dL AST (15-37) U/L ALT (14-59) U/L Alkaline Phosphatase (46-116) U/L Total Protein (6.4-8.2) g/dl Albumin (3.4-5.0) g/dl Globulin gm/dL Albumin/Globulin Ratio (1-2) Lipase (73-393) U/L HCG, Quant mIU/mL Urine Color Yellow (Yellow) Urine Appearance Clear (Clear) Urine pH 5.5 (5.0-8.0) Ur Specific [place] > or = 1.030 (1.005-1.030) Urine Protein Trace H (Negative) Urine Glucose (UA) Negative (Negative) Urine Ketones Trace H (Negative) Urine Occult Blood Trace-lysed H (Negative) Urine Nitrite Negative (Negative) Urine Bilirubin Negative (Negative) Urine Urobilinogen 0.2 (0.2-1.0) Ur Leukocyte Esterase Negative (Negative) Urine RBC 0-5 (0-5) /hpf Urine WBC 0-5 (0-5) /hpf Ur Squamous Epith Cells 5-10 H (0-5) /hpf Urine Bacteria Few (FEW) /hpf Urine Mucus Moderate H (FEW) /hpf Blood Type O NEGATIVE Gel Antibody Screen Positive Rhogam Indicated Yes Meds: Medications Generic Name Dose Route Start Last Admin Trade Name Freq PRN Reason Stop Dose Admin Acetaminophen 650 mg 02/02/19 22:14 Tylenol PO Q4H PRN Pain (mild 1-3) Oxycodone/Acetaminophen 2 tab 02/02/19 22:14 Percocet 325-5 Mg PO Q4H PRN Pain (moderate 4-6) Discontinued Medications Generic Name Dose Route Start Last Admin Trade Name Crq PRN Reason Stop Dose Admin Acetaminophen 950 mg 02/02/19 14:27 02/02/19 15:03 Tylenol PO 02/02/19 14:28 Not Given ONETIME ONE Acetaminophen 975 mg 02/02/19 14:41 02/02/19 15:01 Tylenol PO 02/02/19 14:42 975 mg NOW ONE Administration Hydrocodone Bitart/Acetaminophen 1 tab 02/02/19 17:21 02/02/19 18:48 [place] 325-5 Mg PO 02/02/19 17:22 Not Given ONETIME ONE Bupivacaine HCl Confirm 02/02/19 19:39 02/02/19 20:15 Marcaine 0.5% Administered 02/02/19 19:40 5 ml Dose Administration 30 ml .ROUTE .STK-MED ONE Cefazolin Sodium Confirm 02/02/19 19:54 Ancef Administered 02/02/19 19:55 Dose 2 gm .ROUTE .STK-MED ONE Dexamethasone Confirm 02/02/19 19:39 Dexamethasone Administered 02/02/19 19:40 Dose 20 mg .ROUTE .STK-MED ONE Ephedrine Sulfate Confirm 02/02/19 20:04 Ephedrine In Ns Administered 02/02/19 20:05 Dose 25 mg .ROUTE .STK-MED ONE Fentanyl Confirm 02/02/19 19:35 Sublimaze Administered 02/02/19 19:36 Dose 250 mcg .ROUTE .STK-MED ONE Fentanyl 50 mcg 02/02/19 20:08 02/02/19 21:31 Sublimaze IVPUSH 50 mcg Q5M PRN Administration Pain Glycopyrrolate Confirm 02/02/19 20:33 Administered 02/02/19 20:34 Dose 1 mg .ROUTE .STK-MED ONE Hydromorphone HCl 0.5 mg 02/02/19 18:55 Dilaudid IVPUSH 02/02/19 18:56 ONETIME ONE Hydromorphone HCl 0.5 mg 02/02/19 20:08 Dilaudid IVPUSH Q10M PRN Pain (severe 7-10) Sodium Chloride 1,000 mls @ 999 mls/hr 02/02/19 14:12 02/02/19 14:30 Normal Saline IV 02/02/19 15:12 999 mls/hr ONETIME ONE Administration Sodium Chloride 1,000 mls @ 999 mls/hr 02/02/19 17:45 02/02/19 18:36 Normal Saline IV 02/02/19 18:45 999 mls/hr ONETIME ONE Administration Lactated Ringer's Confirm 02/02/19 19:29 02/02/19 19:57 Ringers, Lactated Administered 02/02/19 19:30 Not Given Dose 1,000 mls @ as directed .ROUTE .STK-MED ONE Lactated Ringer's 1,000 mls @ 999 mls/hr 02/02/19 19:34 02/02/19 19:40 Ringers, Lactated IV 02/02/19 20:34 999 mls/hr .BOLUS ONE Administration Lidocaine HCl Confirm 02/02/19 19:35 Xylocaine-Mpf 1% Administered 02/02/19 19:36 Dose 4 mls @ as directed .ROUTE .STK-MED ONE Lactated Ringer's 1,000 mls @ 125 mls/hr 02/02/19 21:30 02/02/19 21:32 Ringers, Lactated IV 125 mls/hr ASDIRECTED MAURICIO Administration Midazolam HCl Confirm 02/02/19 19:35 Versed 1 Mg/Ml Administered 02/02/19 19:36 Dose 2 mg .ROUTE .STK-MED ONE Neostigmine Methylsulfate Confirm 02/02/19 20:33 Neostigmine Administered 02/02/19 20:34 Dose 5 mg .ROUTE .STK-MED ONE Ondansetron HCl 4 mg 02/02/19 14:28 02/02/19 15:03 Zofran IVPUSH 02/02/19 14:29 4 mg ONETIME ONE Administration Ondansetron HCl Confirm 02/02/19 19:35 Zofran Administered 02/02/19 19:36 Dose 4 mg .ROUTE .STK-MED ONE Ondansetron HCl 4 mg 02/02/19 20:08 Zofran IVPUSH ONETIME PRN Nausea/Vomiting Propofol Confirm 02/02/19 19:35 Diprivan 20 Ml Administered 02/02/19 19:36 Dose 200 mg .ROUTE .STK-MED ONE Rocuronium [place] Confirm 02/02/19 19:35 Zemuron Administered 02/02/19 19:36 Dose 50 mg .ROUTE .STK-MED ONE Sodium Chloride 10 ml 02/02/19 14:12 02/02/19 14:32 Saline Flush FLUSH 10 ml ASDIRECTED PRN Administration Keep Vein Open - Re-Assessments/Exams Free Text/Narrative Re-Assessment/Exam: 02/02/19 18:08 Patient continued to complain of pain, no improvement with Tylenol. Did not want anything stronger for the pain. concerned when nurse informed me that she was orthostatic even after receiving a liter of fluids. Ultrasound ordered of her right upper quadrant to rule out gallbladder pathology as well as a transvaginal ultrasound. patient care technician came and informed. She has a large amount of blood in her pelvis. Unsure where the bleeding is coming from, ruptured ovarian cyst versus ruptured ectopic . She still has an intrauterine with heart tones at this time. Case discussed with Dr. Jason, asked I consult with Dr. Reese. Dr. reese Presented to the ER but Did Not Feel She Had Anything to offer the patient. [place] this is Ectopic or Ruptured Ovarian Cyst. Dr. Jason has come to the ER. She will take the patient to the OR. Departure - Departure Time of Disposition: 18:00 Disposition: Refer to Observation Condition: Serious Clinical Impression: Need for rhogam due to Rh negative mother, Subchorionic bleed, Hemoperitoneum - Discharge Information *PRESCRIPTION DRUG MONITORING PROGRAM REVIEWED*: No *COPY OF PRESCRIPTION DRUG MONITORING REPORT IN PATIENT JUANPABLO: No - My Orders Last 24 Hours: My Active Orders 02/02/19 14:30 ANTIBODY IDENTIFICATION [BBK] Stat RH IMMUNE GLOBULIN [BBK] Stat RHOGAM, [RHIG WORKUP, ] [BBK] Stat 02/02/19 17:21 OB Transvaginal [US] Stat - Assessment/Plan Last 24 Hours: My Active Orders 02/02/19 14:30 ANTIBODY IDENTIFICATION [BBK] Stat RH IMMUNE GLOBULIN [BBK] Stat RHOGAM, [RHIG WORKUP, ] [BBK] Stat 02/02/19 17:21 OB Transvaginal [US] Stat
[2019-02-02] MEDS ORDERED: Acetaminophen 325 MG Tab PO PRN (22:14)
[2019-02-02] MEDS: Acetaminophen/oxyCODONE 325-5 MG Tab PO PRN (22:33)
[2019-02-03] MEDS: Acetaminophen/oxyCODONE 325-5 MG Tab PO PRN (03:18)
[2019-02-03 08:02] VITALS: BP 111/61
--- NOTE | 2019-02-03 19:34 | US ---
Limited obstetrical ultrasound: Multiple real-time images were obtained transvaginally to evaluate viable intrauterine . Single intrauterine gestational sac is seen. Subchorionic hemorrhage is noted. Small pole is seen continuing to have heart activity at a rate of 140 BPM. Measurements: [place]-rump length: 0.71 cm - 6 weeks 4 days Heart rate: 140 bpm Impression: 1. Single intrauterine gestation. Dates as noted above. 2. Continued heart activity is seen within pole. Diagnostic code #2 I agree with preliminary report from [facility], finalized on 02/03/19, 1:12 AM Central Time
--- NOTE | 2019-02-03 19:35 | US ---
First trimester obstetrical ultrasound: Multiple real-time images were obtained transvaginally. Dates: LMP: LMP given as 12/09/18, DEJAN 09/15/19, gestational age 7 weeks 6 days Current ultrasound: DEJAN 09/27/19, gestational age 6 weeks 1 day Single intrauterine gestation is seen. Gestational sac is displaced by a subchorionic hemorrhage measuring approximately 5.4 cm in size. There is complex material within the right adnexa being seen believed to represent blood with clot around the right ovary. There may be some active bleeding into the right adnexa. Left ovary is unremarkable. There is free fluid being seen within portions of the upper abdomen most likely representing blood. Measurements: [place]-rump length: 0.49 cm - 6 weeks 1 day Heart rate: 144 bpm Impression: 1. Complex material within the right adnexa believed to represent blood with clot with probable active bleeding into this area. This surrounds the right ovary. Small amount of blood seen within the upper abdomen. Etiology for this bleeding is not seen and could represent very rare ruptured ectopic with intrauterine being seen. Finding could also represent bleeding from ruptured hemorrhagic cyst within the right ovary. 2. Intrauterine is seen with dates as noted above. Gestational sac is displaced by subchorionic hemorrhage. Diagnostic code #5 I agree with preliminary report from [facility], finalized on 02/02/19, 9:03 PM Central Time
== END 2019-02-03 09:55 | disposition home or self-care (01) ==
LOC: JD.ED 13:09 → JD.SDS 19:25 → JD.OB 19:25 → JD.SDS 02-03 09:55
PROVIDERS: ATTEND Obstetrics & Gynecology
DX: K66.1 Hemoperitoneum (principal); N83.291 Other ovarian cyst, right side; I95.1 Orthostatic hypotension; Z87.19 Personal history of other diseases of the digestive system
CPT/HCPCS: 36415; 58661; 76817; 80053; 81001; 83690; 84702; 85025; 85610; 85730; 96361; 96374; 99285; A9270; J0690; J1100; J2001; J2405; J2704; J2710; J2790; J3010; J3490; J7040; J7050; J7120; 00840; 36430; 99284; J2250

== ENCOUNTER 2019-09-18 06:23 | Inpatient (IN) | payer BC ==
--- NOTE | 2019-09-18 21:02 | PCM.LDHP ---
L&D History of Present Illness - General Date of Service: 09/18/19 Admit Problem/Dx: Admission Diagnosis/Problem Admission Diagnosis/Problem 09/18/19 20:49 Evelyn is a 33-year-old 4 para 1021 white female with an DEJAN of 2019 and a gestational age of 39-3/7 weeks gestational age upon admission for elective induction of labor. Source of Information: Patient History Limitations: Reports: No Limitations - History of Present Illness Introduction:: Evelyn is a 33-year-old 4 para 1021 white female with an DEJAN of 2019 and a gestational age of 39-3/7 weeks gestational age upon admission for elective induction of labor. The procedure of elective induction of labor, its risks, benefits and alternatives including allowing natural labor onset are discussed in detail with patient. She appears to understand and wishes to proceed. EXPERIMENTAL MECHANIC history: Patient is a 4 para 10-1 (1 ectopic and fallopian tube and one spontaneous ) is dated with an early ultrasound done at 7-1/7 weeks gestational age on 02/04/2019. Is supported by 2 other ultrasounds done on 02/20/2019 and 05/17/2019. She was obstetric history with this is complicated by a right tubal which was excised with a right partial salpingectomy. Her past obstetric history includes menarche at age 14. Cycles every 30-35 days and fairly regular. She is not using any control at the time of conception. Her last menstrual period was approximately. Patient's previous pregnancies included the followin. Female born 08/15/2015 at 39-3/7 weeks gestational age after 36 hours of labor. Baby weighed 7 lbs. 1 oz. Baby's name is Ar 2. Miscarriage passed spontaneously on 10/25/2018 at 5 weeks gestational age 3. Ectopic 02/02/2019 right fallopian tubetreated with partial right salpingectomy done via laparoscopy course. First visit was on 02/21/2019. She was seen on a regular basis and was a centering patient. Her weight gain was from 149 pounds up to 184 pounds 435 pound weight gain. Fundal height is appropriate. Patient's was complicated by the right which was managed with a right partial salpingectomy done laparoscopically. Group B strep screen is negative. Patient desires epidural in labor. Patient has history of anxiety. She plans to breast-feed. She is a centering patient. She declined genetic testing. Has a family history of factor V Leiden mutation but was tested and is negative. Patient had her flu shot on 06/04/2019. Her T DP was given on 07/02/2019. She had her hepatitis B immunization in December 1999. Laboratory testing in shows blood to be O- with a positive antibody screen secondary to RhoGAM having been administered early in due to the ectopic . Her initial hemoglobin was 11.9 g/dL at first visit. Platelets are 276,000. Rubella titer shows immunity. RPR is nonreactive. Urine culture was negative. Hepatitis B surface antigen and HIV assays were both negative. Gonorrhea tests were both negative. Her hemoglobin hemoglobin was 11.2 at second trimester and platelets are 205,000. Her 1 hour GTT was 108normal. Repeat RPR on 06/18/2019 was nonreactive. Her group B strep screen was negative. Allergies: None Medications: 1. Ferrous sulfate 3 and 25 mg by mouth daily 2. vitamins by mouth daily Past medical history: 1. Right tubal 2. Spontaneous at 5 weeks gestation 10/25/2018passed spontaneously 3. Normal spontaneous vaginal delivery Past surgical history: Labioplasty 2013 2. Knee surgery 2001 3. Laparoscopic right salpingectomy 2018. Family history: Maternal uncles have factor V Leiden mutation. Mother and father are alive and well. One brother is alive and well. Maternal grandmother secondary to cause unknown. Maternal grandfather secondary to retractor S accident versus an CO. Paternal grandmother secondary to unknown causes. Paternal grandfather secondary to L [place] disease. No anesthesia, , bleeding or blood clotting problems otherwise noted in the family. Social history: Patient is an property accountant. She is a college graduate. She lives in [place]. Significant other's [facility]. She does not use any significant loss of alcohol, drugs or tobacco. Review of systems: In general patient has no complaints. Skin: Negative Lungs: No infectious symptoms or shortness of breath Cardiovascular: No chest pain or exercise intolerance Breasts: Changes associated with GI: Negative : Body habitus changes consistent with term Musculoskeletal: Negative Neurological: Negative In general the patient is well-developed, well-nourished, pleasant female of stated age in no acute distress. On last evaluation in 09/16/2019 her blood pressures 128/70. Weight was 184 pounds with pre- weight 149 pounds. Height is 5 feet 5 inches. Prepregnancy body mass index is 23.3. Skin is warm dry without lesions. HEENT, neck and back within normal limits. Lungs are clear with good breath sounds in all lung gardiner. Cardiovascular exam shows regular and rhythm without murmurs. Abdomen is gravid with fundal height on last evaluation at 39 cm. Baby in vertex presentation.. Genital exam per digital exam on last evaluation clinic shows cervix to be 1-2 cm, 90% effaced, soft, -3, mid position. Extremities and neurological exam are grossly within normal limits. - Related Data Allergies/Adverse Reactions: Allergies Allergy/AdvReac Type Severity Reaction Status Date / Time No Known Allergies Allergy Verified 02/02/19 13:28 Home Medications: Home Meds Vit Calc,Iron,Folic [ Vitamins] 1 tab PO DAILY 08/14/16 [ History] Folic Acid 1 mg PO DAILY 02/02/19 [History] Progesterone, Micronized [Progesterone] 100 mg PO DAILY 02/02/19 [History] Past Medical History HEENT History: Reports: Impaired Vision Other HEENT History: Pt wears contacts Cardiovascular History: Reports: None Respiratory History: Reports: None Gastrointestinal History: Reports: GERD (with preg) Genitourinary History: Reports: None EXPERIMENTAL MECHANIC History: Reports: Musculoskeletal History: Reports: None Oncologic (Cancer) History: Reports: None - Past Surgical History Female Surgical History: Reports: Other (See Below) (labia surgery) Musculoskeletal Surgical History: Reports: Other (See Below) (knee) Social & Family History - Caffeine Use Caffeine Use: Reports: None H&P Review of Systems - Review of Systems: Review Of Systems: See Below L&D Exam - Exam Exam: See Below Problem List Initiated/Reviewed/Updated: Yes Assessment/Plan Comment:: 1. 33-year-old 4 para 1021 white female an DEJAN of 09/23/2019 presently at 39-3/7 week intrauterine upon admission on 09/19/2023 elective induction of labor 2. Group B strep negative 3. Patient desires epidural in labor and delivery 4. Patient plans to breast-feed 5. Risk factors for the include history of right tubal during his with resultant laparoscopic right partial salpingectomy, history of miscarriage 1 6. Patient has received her diphtheria pertussis tetanus immunization and her influenza immunization. Plan: 1. Pitocin induction of labor with artificial rupture membranes augmentation scheduled for a.m. of 09/19/2019 2. Epidural when necessary per patient desire 3. CBC and RPR per protocol upon admission 4. Support breast-feeding incision 5. Anticipate routine course and plan for routine care.
[2019-09-19] MEDS ORDERED: Sodium Chloride 0.9% 10 ML Syringe FLUSH PRN (07:19)
[2019-09-19] MEDS ORDERED: Nalbuphine 10 MG/ML Syringe IVPUSH PRN (07:19)
[2019-09-19] MEDS ORDERED: Lidocaine 1% 50 ML MDV INJECT PRN (07:30)
[2019-09-19] MEDS ORDERED: Oxytocin/Lactated Ringers 10 UNIT/1,000 ML BAG IV SCH ×2 (07:30)
[2019-09-19] MEDS: Lactated Ringers 1,000 ML IV SCH ×2 (08:30→12:29)
[2019-09-19] MEDS ORDERED: Lidocaine 1.5% with EPINEPHrine 1:200,000 5 ML Amp ONE (10:00)
[2019-09-19] MEDS ORDERED: fentaNYL 100 MCG/2 ML SDV EPIDUR PRN (11:41)
[2019-09-19] MEDS ORDERED: diphenhydrAMINE 50 MG/ML SDV IVPUSH PRN (11:41)
[2019-09-19] MEDS ORDERED: Bupivacaine/fentaNYL/NS 100 ML Bag EPIDUR PRN (11:41)
[2019-09-19] MEDS ORDERED: ePHEDrine 50 MG/ML SDV IVPUSH PRN (11:41)
--- NOTE | 2019-09-19 11:55 | PCM.PREANE ---
Preanesthetic Assessment - Anesthesia/Transfusion/Family Hx Anesthesia History: Prior Anesthesia Without Reaction Transfusion History: No Prior Transfusion(s) Intubation History: Unknown - Review of Systems General: No Symptoms Pulmonary: No Symptoms Cardiovascular: No Symptoms Gastrointestinal: No Symptoms Neurological: No Symptoms Other: Reports: None - Physical Assessment Vital Signs: Last Vital Signs Temp 97.6 F 09/19/19 08:00 Pulse 73 09/19/19 08:00 Resp 16 09/19/19 08:00 BP 125/86 09/19/19 08:00 Pulse Ox Height: 1.65 m Weight: 85.729 kg ASA Class: 2 Mental Status: Alert & Oriented x3 Airway Class: Mallampati = 2 Dentition: Reports: Normal Dentition Thyro-Mental Finger Breadths: 3 Mouth Opening Finger Breadths: 3 ROM/Head Extension: Full Lungs: Clear to Auscultation, Normal Respiratory Effort - Lab Values: Laboratory Last Values WBC 8.67 K/mm3 (3.98-10.04) 09/19/19 07:55 RBC 3.99 M/mm3 (3.98-5.22) 09/19/19 07:55 Hgb 12.5 gm/dl (11.2-15.7) 09/19/19 07:55 Hct 37.5 % (34.1-44.9) 09/19/19 07:55 MCV 94.0 fl (79.4-94.8) 09/19/19 07:55 MCH 31.3 pg (25.6-32.2) 09/19/19 07:55 MCHC 33.3 g/dl (32.2-35.5) 09/19/19 07:55 RDW Std Deviation 41.6 fL (36.4-46.3) 09/19/19 07:55 Plt Count 194 K/mm3 (182-369) 09/19/19 07:55 MPV 11.2 fl (9.4-12.3) 09/19/19 07:55 - Allergies Allergies/Adverse Reactions: Allergies Allergy/AdvReac Type Severity Reaction Status Date / Time No Known Allergies Allergy Verified 02/02/19 13:28 - Acknowledgements Anesthesia Type Planned: Epidural Pt an Appropriate Candidate for the Planned Anesthesia: Yes Alternatives and Risks of Anesthesia Discussed w Pt/Guardian: Yes Pt/Guardian Understands and Agrees with Anesthesia Plan: Yes PreAnesthesia Questionnaire HEENT History: Reports: Impaired Vision Other HEENT History: Pt wears contacts Gastrointestinal History: Reports: [employer] History: Reports: Ectopic , , Other (See Below) Other OB/BYN History: labial plasty 2014. laparoscopic partial salpingectomy 2019 Psychiatric History: Reports: Anxiety, Depression Hematologic History: Reports: Anemia Oncologic (Cancer) History: Reports: None - Past Surgical History HEENT Surgical History: Reports: None GI Surgical History: Reports: None Female Surgical History: Reports: Other (See Below) Musculoskeletal Surgical History: Reports: Other (See Below) Other Musculoskeletal Surgeries/Procedures:: knee surgery 2001 - SUBSTANCE USE Smoking Status *Q: Never Smoker Second Hand Smoke Exposure: No Recreational Drug Use History: No - HOME MEDS Home Medications: Home Meds Vit Calc,Iron,Folic [ Vitamins] 1 tab PO DAILY 08/14/16 [ History] Folic Acid 1 mg PO DAILY 02/02/19 [History] Ferrous Sulfate [Iron] 325 mg PO DAILY 09/19/19 [History] - CURRENT (IN HOUSE) MEDS Current Meds: Current Medications Diphenhydramine HCl (Benadryl) 25 mg IVPUSH Q6H PRN PRN Reason: pruritis Ephedrine Sulfate (Ephedrine Sulfate) 5 mg IVPUSH ASDIRECTED PRN PRN Reason: Hypotension Fentanyl (Sublimaze) 100 mcg EPIDUR Q3H PRN PRN Reason: Pain Fentanyl/Bupivacaine HCl (Fentanyl/Bupivacaine/Ns 2 Mcg-0.125% 250 Ml) ml EPIDUR CONTINUOUS PRN PRN Reason: Pain Lactated Ringer's (Ringers, Lactated) 1,000 mls @ 100 mls/hr IV ASDIRECTED MAURICIO Last Admin: 09/19/19 08:30 Dose: 100 mls/hr Oxytocin/Lactated Ringer's (Pitocin In Lr 10 Units/1,000 Ml) 10 unit in 1,000 mls @ 12 mls/hr IV TITRATE MAURICIO; Protocol Last Titration: 09/19/19 11:00 Dose: 6 munits/min, 36 mls/hr Oxytocin/Lactated Ringer's (Pitocin In Lr 10 Units/1,000 Ml) 10 unit in 1,000 mls @ 500 mls/hr IV .CONTINUOUS MAURICIO Lidocaine HCl (Xylocaine 1%) 50 ml INJECT ONETIME PRN PRN Reason: Breakthrough Pain Nalbuphine HCl (Nubain) 10 mg IVPUSH Q2H PRN PRN Reason: Pain Sodium Chloride (Saline Flush) 10 ml FLUSH ASDIRECTED PRN PRN Reason: Keep Vein Open
[2019-09-19] MEDS ORDERED: Benzocaine/Menthol 20%-0.5% Spray 56 GM Canister TOP PRN (15:50)
[2019-09-19] MEDS ORDERED: Docusate Sodium 100 MG Cap PO PRN (15:50)
[2019-09-19] MEDS ORDERED: Witch Hazel Medicated Pads 40/Jar TOP PRN (15:50)
--- NOTE | 2019-09-19 17:55 | PCM.SN ---
- Free Text/Narrative Note: Evelyn is a 33-year-old 4 para 1021 white female with an DEJAN of 2019 and a gestational age of 39-3/7 weeks gestational age upon admission for elective induction of labor. Patient progressed steadily to complete cervical dilation by approximately 1430 hrs. She underwent epidural for labor and analgesia. At 1458 hrs. on 09/19/2019 patient delivered a viable, zhou, female infant with Apgars of 6 and 9, weight of 2900 g (6 pounds 6.3 ounces), length of 19.5 inches in a direct occiput anterior position. She had a small midline episiotomy which extended to a second-degree laceration. Baby was placed on mom's abdomen. Umbilical cord was locked pulsate for 1-2 minutes. It was then cut. Cord blood was obtained. Pitocin was increased to 500 mL/h to facilitate increase in uterine tone and decreased likelihood of bleeding. The laceration was repaired with 3-0 Monocryl in a routine fashion. Labor epidural was used for anesthesia. Patient tolerated procedure well. Placenta delivered in a Bennett presentation, appeared intact and complete and was discarded per patient desire. Patient plans to breast-feed. Estimated blood loss 100 mL. Condition: Good
[2019-09-20] MEDS ORDERED: hydrOXYzine HCl 50 MG Tab PO ONE (00:29)
[2019-09-20] MEDS ORDERED: Acetaminophen 325 MG Tab PO PRN (04:55)
[2019-09-20] MEDS: Ibuprofen 600 MG Tab PO PRN ×3 (05:15→21:00)
--- NOTE | 2019-09-20 05:55 | PCM.SN ---
- Free Text/Narrative Note: note: Patient is doing well in the period. Minimal lochia, voiding well, ambulated without problems. Nursing without concerns. Had some trouble sleeping last evening. Patient is afebrile, vital signs are stable Abdomen is flat, soft, uterus is below the umbilicus and is firm and nontender. Legs are nontender. Assessment: recovery going well. Plan: Routine care. Patient be discharged home within the next 24-48 hours.
--- NOTE | 2019-09-20 07:41 | PCM48HPAN ---
Post Anesthesia Note - EVALUATION WITHIN 48HRS OF ANESTHETIC Vital Signs in Normal Range: Yes Patient Participated in Evaluation: Yes Respiratory Function Stable: Yes Airway Patent: Yes Cardiovascular Function Stable: Yes Hydration Status Stable: Yes Pain Control Satisfactory: Yes Nausea and Vomiting Control Satisfactory: Yes Mental Status Recovered: Yes Vital Signs: Last Vital Signs Temp 36.8 C 09/19/19 22:40 Pulse 69 09/20/19 05:20 Resp 16 09/20/19 05:20 BP 112/89 09/20/19 05:20 Pulse Ox 100 09/20/19 05:20 - COMMENTS/OBSERVATIONS Free Text/Narrative:: no anesthesia complications noted
[2019-09-20] MEDS: Prenatal Multivitamin with Calcium/Folic Acid/Iron Tab PO SCH (10:00)
[2019-09-20] MEDS ORDERED: hydrOXYzine HCl 50 MG Tab PO PRN (21:00)
[2019-09-20] MEDS ORDERED: Sertraline 25 MG Tab PO SCH (21:00)
[2019-09-21] MEDS: Ibuprofen 600 MG Tab PO PRN (05:00)
[2019-09-21 06:49] VITALS: BP 138/88; PULSE 68
--- NOTE | 2019-09-21 07:34 | PCM.PNPP ---
- General Info Date of Service: 09/21/19 Functional Status: Reports: Pain Controlled, Tolerating Diet, Ambulating, Urinating - Review of Systems General: Reports: No Symptoms Pulmonary: Reports: No Symptoms Cardiovascular: Reports: No Symptoms Gastrointestinal: Reports: No Symptoms Genitourinary: Reports: No Symptoms Musculoskeletal: Reports: No Symptoms Psychiatric: Reports: Anxiety - Patient Data Vital Signs - Most Recent: Last Vital Signs Temp 37.1 C 09/21/19 04:56 Pulse 68 09/21/19 04:56 Resp 14 09/21/19 04:56 BP 138/88 09/21/19 04:56 Pulse Ox 98 09/21/19 04:56 Weight - Most Recent: 85.729 kg Med Orders - Current: Current Medications Acetaminophen (Tylenol) 650 mg PO Q4H PRN PRN Reason: Pain Benzocaine/Menthol (Dermoplast Pain Relief [place]) 0 gm TOP ASDIRECTED PRN PRN Reason: Perineal Comfort Measure Last Admin: 09/19/19 18:27 Dose: 1 can Docusate Sodium (Colace) 100 mg PO BID PRN PRN Reason: Constipation Hydroxyzine HCl (Atarax) 50 mg PO BEDTIME PRN PRN Reason: Sleep Last Admin: 09/20/19 21:00 Dose: 50 mg Ibuprofen (Motrin) 600 mg PO Q4H PRN PRN Reason: Pain Last Admin: 09/21/19 05:00 Dose: 600 mg Prenat Multivit/Mine Inspector/Iron/Folic Ac ( Plus Iron) 1 each PO DAILY [facility] Last Admin: 09/20/19 10:00 Dose: 1 each Sertraline HCl (Zoloft) 25 mg PO BEDTIME MAURICIO Last Admin: 09/20/19 21:00 Dose: 25 mg Sodium Chloride (Saline Flush) 10 ml FLUSH ASDIRECTED PRN PRN Reason: Keep Vein Open Witch Purnima (Tucks) 1 pad TOP ASDIRECTED PRN PRN Reason: Pain Last Admin: 09/19/19 18:26 Dose: 1 tub Discontinued Medications Diphenhydramine HCl (Benadryl) 25 mg IVPUSH Q6H PRN PRN Reason: pruritis Ephedrine Sulfate (Ephedrine Sulfate) 5 mg IVPUSH ASDIRECTED PRN PRN Reason: Hypotension Fentanyl (Sublimaze) 100 mcg EPIDUR Q3H PRN PRN Reason: Pain Last Admin: 09/19/19 13:08 Dose: 100 mcg Fentanyl/Bupivacaine HCl (Fentanyl/Bupivacaine/Ns 2 Mcg-0.125% 100 Ml) 100 ml EPIDUR CONTINUOUS PRN PRN Reason: Pain Last Admin: 09/19/19 13:09 Dose: 100 ml Hydroxyzine HCl (Atarax) 50 mg PO ONETIME ONE Stop: 09/20/19 00:30 Last Admin: 09/20/19 00:41 Dose: 50 mg Lactated Ringer's (Ringers, Lactated) 1,000 mls @ 100 mls/hr IV ASDIRECTED MAURICIO Last Infusion: 09/19/19 13:00 Dose: 100 mls/hr Oxytocin/Lactated Ringer's (Pitocin In Lr 10 Units/1,000 Ml) 10 unit in 1,000 mls @ 12 mls/hr IV TITRATE MAURICIO; Protocol Last Titration: 09/19/19 16:30 Dose: 200 mls/hr Oxytocin/Lactated Ringer's (Pitocin In Lr 10 Units/1,000 Ml) 10 unit in 1,000 mls @ 500 mls/hr IV .CONTINUOUS MAURICIO Lidocaine HCl (Xylocaine 1%) 50 ml INJECT ONETIME PRN PRN Reason: Breakthrough Pain Lidocaine/Epinephrine (Xylocaine-Mpf 1.5% W/Epinephrine 1:200,000) 5 ml .ROUTE .STK-MED ONE Stop: 09/19/19 10:01 Nalbuphine HCl (Nubain) 10 mg IVPUSH Q2H PRN PRN Reason: Pain - Interaction Infant Disposition, : [place] to Nursery Infant Feeding: Attempted ; Nursed Fair/Poor, Bottle Fed Support Person: - Recovery Exam Fundal Tone: Firm Fundal Level: 1 Fingerbreadths Below Umbilicus Fundal Placement: Midline Lochia Amount: Scant, Small Lochia Color: Rubra/Red Perineum Description: Other (see below) Other Perinuem Description: epis w/repair Episiotomy/Laceration: Approximated Bladder Status: Nonpalpable, Voiding Urinary Elimination: Voided - Exam General: Alert, Oriented, Cooperative GI/Abdominal Exam: Soft, Non-Tender Extremities: Normal Inspection - Problem List & Annotations (1) Vaginal delivery SNOMED Code(s): 559602787 Code(s): O80 - ENCOUNTER FOR FULL-TERM UNCOMPLICATED DELIVERY Status: Acute Current Visit: Yes - Problem List Review Problem List Initiated/Reviewed/Updated: Yes - Assessment Assessment:: PPD#2 - Plan Plan:: * Routine cares * Breast/bottle feeding * Anxiety - will send home with Rx for Vistaril and Zoloft as started yesterday * Has received Rhogam * Discharge home today
--- NOTE | 2019-09-21 07:47 | PCM.DCSUM1 ---
Discharge Summary - Discharge Data Discharge Date: 09/21/19 Discharge Disposition: Home, Self-Care 01 Condition: Good - Referral to Home Health Primary Care Physician: Adalid Navas MD - Discharge Diagnosis/Problem(s) (1) Vaginal delivery SNOMED Code(s): 140967560 ICD Code: O80 - ENCOUNTER FOR FULL-TERM UNCOMPLICATED DELIVERY Status: Acute Current Visit: Yes - Patient Summary/Data Complications: None Consults: None Recommended Follow-up Testing/Procedures: Follow up in 2 weeks Hospital Course: Patient is a 33 y/o presented for elective IOL at 39 3/7 wks. Induction and uncomplicated. patient with some increasing anxiety for which she was started on Zoloft. Was doing well and discharged home on PPD#2 - Patient Instructions Diet: Regular Diet as Tolerated Activity: As Tolerated Activity, Other: Pelvic rest for 6 weeks Driving: May Drive Today Showering/Bathing: May Shower Showering/Bathing, Other: May Bathe Notify Provider of: Fever, Increased Pain, Swelling and Redness, Drainage, Nausea and/or Vomiting - Discharge Plan *PRESCRIPTION DRUG MONITORING PROGRAM REVIEWED*: No *COPY OF PRESCRIPTION DRUG MONITORING REPORT IN PATIENT JUANPABLO: No Prescriptions/Med Rec: hydrOXYzine HCL [hydrOXYzine] 50 mg PO BEDTIME PRN #20 tablet PRN Reason: Sleep Sertraline [Zoloft] 25 mg PO BEDTIME #30 tablet Home Medications: Home Meds Vit Calc,Iron,Folic [ Vitamins] 1 tab PO DAILY 08/14/16 [ History] Ibuprofen [Motrin] 600 mg PO Q4H PRN tablet 09/21/19 [Rx] Sertraline [Zoloft] 25 mg PO BEDTIME #30 tablet 09/21/19 [Rx] hydrOXYzine HCL [hydrOXYzine] 50 mg PO BEDTIME PRN #20 tablet 09/21/19 [Rx] Patient Handouts: Depression, Baby Blues, Home Care Instructions for Mom Referrals: Adalid Navas MD [Primary Care Provider] - (2 weeks for check ) - Discharge Summary/Plan Comment DC Time >30 min.: No - Patient Data Vitals - Most Recent: Last Vital Signs Temp 37.1 C 09/21/19 04:56 Pulse 68 09/21/19 04:56 Resp 14 09/21/19 04:56 BP 138/88 09/21/19 04:56 Pulse Ox 98 09/21/19 04:56 Weight - Most Recent: 85.729 kg Med Orders - Current: Current Medications Acetaminophen (Tylenol) 650 mg PO Q4H PRN PRN Reason: Pain Benzocaine/Menthol (Dermoplast Pain Relief [place]) 0 gm TOP ASDIRECTED PRN PRN Reason: Perineal Comfort Measure Last Admin: 09/19/19 18:27 Dose: 1 can Docusate Sodium (Colace) 100 mg PO BID PRN PRN Reason: Constipation Hydroxyzine HCl (Atarax) 50 mg PO BEDTIME PRN PRN Reason: Sleep Last Admin: 09/20/19 21:00 Dose: 50 mg Ibuprofen (Motrin) 600 mg PO Q4H PRN PRN Reason: Pain Last Admin: 09/21/19 05:00 Dose: 600 mg Prenat Multivit/[place]/Iron/Folic Ac ( Plus Iron) 1 each PO DAILY MAURICIO Last Admin: 09/20/19 10:00 Dose: 1 each Sertraline HCl (Zoloft) 25 mg PO BEDTIME MAURICIO Last Admin: 09/20/19 21:00 Dose: 25 mg Sodium Chloride (Saline Flush) 10 ml FLUSH ASDIRECTED PRN PRN Reason: Keep Vein Open Witch Purnima (Tucks) 1 pad TOP ASDIRECTED PRN PRN Reason: Pain Last Admin: 09/19/19 18:26 Dose: 1 tub Discontinued Medications Diphenhydramine HCl (Benadryl) 25 mg IVPUSH Q6H PRN PRN Reason: pruritis Ephedrine Sulfate (Ephedrine Sulfate) 5 mg IVPUSH ASDIRECTED PRN PRN Reason: Hypotension Fentanyl (Sublimaze) 100 mcg EPIDUR Q3H PRN PRN Reason: Pain Last Admin: 09/19/19 13:08 Dose: 100 mcg Fentanyl/Bupivacaine HCl (Fentanyl/Bupivacaine/Ns 2 Mcg-0.125% 100 Ml) 100 ml EPIDUR CONTINUOUS PRN PRN Reason: Pain Last Admin: 09/19/19 13:09 Dose: 100 ml Hydroxyzine HCl (Atarax) 50 mg PO ONETIME ONE Stop: 09/20/19 00:30 Last Admin: 09/20/19 00:41 Dose: 50 mg Lactated Ringer's (Ringers, Lactated) 1,000 mls @ 100 mls/hr IV ASDIRECTED MAURICIO Last Infusion: 09/19/19 13:00 Dose: 100 mls/hr Oxytocin/Lactated Ringer's (Pitocin In Lr 10 Units/1,000 Ml) 10 unit in 1,000 mls @ 12 mls/hr IV TITRATE MAURICIO; Protocol Last Titration: 09/19/19 16:30 Dose: 200 mls/hr Oxytocin/Lactated Ringer's (Pitocin In Lr 10 Units/1,000 Ml) 10 unit in 1,000 mls @ 500 mls/hr IV .CONTINUOUS MAURICIO Lidocaine HCl (Xylocaine 1%) 50 ml INJECT ONETIME PRN PRN Reason: Breakthrough Pain Lidocaine/Epinephrine (Xylocaine-Mpf 1.5% W/Epinephrine 1:200,000) 5 ml .ROUTE .STK-MED ONE Stop: 09/19/19 10:01 Nalbuphine HCl (Nubain) 10 mg IVPUSH Q2H PRN PRN Reason: Pain
[2019-09-21] MEDS: Prenatal Multivitamin with Calcium/Folic Acid/Iron Tab PO SCH (08:41)
== END 2019-09-21 11:13 | disposition home or self-care (01) | DRG 560 ==
LOC: JD.OB 09-19 06:59 → OBSVTOIN 09-19 14:58 → JD.OB 09-19 14:58
PROVIDERS: ADMIT Obstetrics & Gynecology; ATTEND Obstetrics & Gynecology
PROC: 10E0XZZ Delivery of Products of Conception, External Approach (ICD-10-PCS; principal; 2019-09-19)
PROC: 0W8NXZZ Division of Female Perineum, External Approach (ICD-10-PCS; 2019-09-19)
PROC: 3E0R3BZ Introduction of Anesthetic Agent into Spinal Canal, Percutaneous Approach (ICD-10-PCS; 2019-09-19)
PROC: 00HU33Z Insertion of Infusion Device into Spinal Canal, Percutaneous Approach (ICD-10-PCS; 2019-09-19)
PROC: 3E0334Z Introduction of Serum, Toxoid and Vaccine into Peripheral Vein, Percutaneous Approach (ICD-10-PCS; 2019-09-19)
DX: O99.02 Anemia complicating childbirth (principal); D64.9 Anemia, unspecified; O99.345 Other mental disorders complicating the puerperium; F41.9 Anxiety disorder, unspecified; O99.62 Diseases of the digestive system complicating childbirth; K21.9 Gastro-esophageal reflux disease without esophagitis; O26.893 Other specified pregnancy related conditions, third trimester; Z67.41 Type O blood, Rh negative; Z3A.39 39 weeks gestation of pregnancy; Z37.0 Single live birth
CPT/HCPCS: 01967; 36415; 51702; 59025; 59409; 85027; 85460; 85461; 86592; 86850; 86870; 86900; 86901; A9270-GY; J2590; J2790; J3010; J7120

== ENCOUNTER 2021-09-30 07:05 | Inpatient (IN) | payer BC ==
[~2021-09-30 07:05] MED LIST: Bupivacaine 0.25% 10 ML SDV ONE; ePHEDrine 50 MG/ML SDV ONE
[2021-09-30] MEDS ORDERED: Lidocaine 1% 50 ML MDV INJECT ONE (07:45)
[2021-09-30] MEDS ORDERED: Sodium Chloride 0.9% 10 ML Syringe FLUSH PRN (07:45)
[2021-09-30] MEDS ORDERED: Nalbuphine 10 MG/1 ML Vial IVPUSH PRN (07:45)
[2021-09-30] MEDS ORDERED: Oxytocin/Lactated Ringers 10 UNIT/1,000 ML BAG IV SCH (07:45)
[2021-09-30] MEDS ORDERED: Ondansetron 4 MG/2 ML SDV IVPUSH PRN (07:45)
[2021-09-30] MEDS ORDERED: Calcium Carbonate 500 MG Tab.Chew PO PRN (07:45)
[2021-09-30] MEDS ORDERED: diphenhydrAMINE 50 MG/ML SDV IVPUSH PRN (08:08)
[2021-09-30] MEDS ORDERED: fentaNYL 100 MCG/2 ML SDV EPIDUR PRN (08:08)
[2021-09-30] MEDS: Lactated Ringers 1,000 ML IV SCH ×2 (10:45→11:36)
[2021-09-30] MEDS: Bupivacaine/fentaNYL/NS 100 ML Bag EPIDUR PRN ×2 (11:15→20:25)
[2021-09-30] MEDS: ePHEDrine 50 MG/ML SDV IVPUSH PRN ×3 (11:55→13:47)
[2021-09-30] MEDS ORDERED: Witch Hazel Medicated Pads 40/Jar TOP PRN (21:39)
[2021-09-30] MEDS ORDERED: Benzocaine/Menthol 20%-0.5% Spray 78 GM Cannister TOP PRN (21:39)
[2021-09-30] MEDS: Sodium Chloride 0.9% 10 ML Syringe FLUSH SCH (21:46)
[2021-09-30] MEDS: Ibuprofen 600 MG Tab PO PRN (22:09)
[2021-10-01] MEDS ORDERED: Melatonin 3 MG Tab PO PRN (02:32)
[2021-10-01] MEDS: Ibuprofen 600 MG Tab PO PRN ×3 (06:31→21:11)
[2021-10-01] MEDS: Acetaminophen 325 MG Tab PO PRN ×2 (09:44→19:50)
[2021-10-01] MEDS ORDERED: Sertraline 50 MG Tab PO SCH (21:00)
[2021-10-01] MEDS ORDERED: LORazepam 0.5 MG Tab PO ONE (23:03)
[2021-10-02] MEDS: Acetaminophen 325 MG Tab PO PRN ×2 (02:04→09:29)
[2021-10-02] MEDS: Ibuprofen 600 MG Tab PO PRN (04:16)
[2021-10-02 10:01] VITALS: BP 121/81; PULSE 64
== END 2021-10-02 14:40 | disposition home or self-care (01) | DRG 560 ==
LOC: JD.OB 07:05 → OBSVTOIN 21:07 → JD.OB 21:08
PROVIDERS: ADMIT Obstetrics & Gynecology; ATTEND Obstetrics & Gynecology
PROC: 10E0XZZ Delivery of Products of Conception, External Approach (ICD-10-PCS; principal; 2021-09-30)
PROC: 10907ZC Drainage of Amniotic Fluid, Therapeutic from Products of Conception, Via Natural or Artificial Opening (ICD-10-PCS; 2021-09-30)
PROC: 3E033VJ Introduction of Other Hormone into Peripheral Vein, Percutaneous Approach (ICD-10-PCS; 2021-09-30)
PROC: 0KQM0ZZ Repair Perineum Muscle, Open Approach (ICD-10-PCS; 2021-09-30)
PROC: 3E0R3BZ Introduction of Anesthetic Agent into Spinal Canal, Percutaneous Approach (ICD-10-PCS; 2021-09-30)
PROC: 00HU33Z Insertion of Infusion Device into Spinal Canal, Percutaneous Approach (ICD-10-PCS; 2021-09-30)
DX: O99.62 Diseases of the digestive system complicating childbirth (principal); Z37.0 Single live birth; K21.9 Gastro-esophageal reflux disease without esophagitis; O99.02 Anemia complicating childbirth; D64.9 Anemia, unspecified; O70.1 Second degree perineal laceration during delivery; Z20.822 Contact with and (suspected) exposure to COVID-19; O99.344 Other mental disorders complicating childbirth; F41.9 Anxiety disorder, unspecified; F32.A Depression, unspecified; Z3A.39 39 weeks gestation of pregnancy
CPT/HCPCS: 36415; 51702; 59025; 59409; 85025; 85461; 86592; 86850; 86870; 86900; 86901; A9270-GY; J2405; J2590; J2790; J3010; J3490; J7120; U0002